=== PATIENT | female | born 1980 | race Caucasian/White ===

== ENCOUNTER 2017-10-21 16:22 | Emergency (ER) | payer MEDICAID ==
[~2017-10-21] VITALS: Ht 175.3 cm; Wt 101.6 kg
[~2017-10-21 16:22] MED LIST: ALBU6.7H INH; AMOX-422 PO; ARIP5TAB4 PO; ATOM10CA; AZIT250T PO; CIPR-230 PO; CLON-527 PO; CYCL-1 PO; FLUT16SP2 NS; MONT5TAB14 PO; NORCO10T PO; PHEN-873 PO; PROP40TA7 PO
[2017-10-21] MEDS ORDERED: AMOX-580 PO (17:07)
[2017-10-21] MEDS ORDERED: PROP40TA7 PO (17:07)
[2017-10-21 17:08] VITALS: BP 148/105
== END 2017-10-21 17:12 | disposition home or self-care (01) ==
LOC: ER 16:22
DX: J32.9 Chronic sinusitis, unspecified (principal); Z76.0 Encounter for issue of repeat prescription; I10 Essential (primary) hypertension; G89.29 Other chronic pain; F17.200 Nicotine dependence, unspecified, uncomplicated; F12.10 Cannabis abuse, uncomplicated; F15.10 Other stimulant abuse, uncomplicated; Z88.6 Allergy status to analgesic agent; Z90.49 Acquired absence of other specified parts of digestive tract; Z79.899 Other long term (current) drug therapy
CPT/HCPCS: 99283

== ENCOUNTER 2017-11-12 19:10 | Emergency (ER) | payer MEDICAID ==
[~2017-11-12] VITALS: Ht 175.3 cm; Wt 81.6 kg
[~2017-11-12 19:10] MED LIST changes: +AMOX-580 PO
[2017-11-12 19:24] VITALS: BP 136/84
[2017-11-13] MEDS ORDERED: AZIT500T5 PO (18:02)
[2017-11-13] MEDS ORDERED: HYDR-569 PO (18:02)
[2017-11-13] MEDS ORDERED: PRED20TA PO (18:02)
== END 2017-11-12 21:53 | disposition left against medical advice (07) ==
LOC: ER 19:10
DX: J02.9 Acute pharyngitis, unspecified (principal); Z53.21 Procedure and treatment not carried out due to patient leaving prior to being seen by health care provider

== ENCOUNTER 2017-11-13 14:40 | Emergency (ER) | payer MEDICAID ==
[~2017-11-13] VITALS: Ht 172.7 cm; Wt 85.4 kg
[2017-11-13] MEDS ORDERED: ketorolac tromethamine 15mg/ml inj. IM ONE (14:55)
[2017-11-13] MEDS ORDERED: acetaminophen 325mg tablet PO ONE (14:55)
[2017-11-13] MEDS ORDERED: dexamethasone sod phosphate 10mg/ml inj IV STA (15:08)
[2017-11-13] MEDS ORDERED: normal saline 1000ML IV soln IV ONE (15:10)
[2017-11-13] MEDS ORDERED: LIDOcaine Viscous 15ml cup MM PRN (15:10)
[2017-11-13] MEDS ORDERED: CefTRIAXone 2gm/NS 100ml IVPB 100 ML IV ONE (15:10)
[2017-11-13 16:23] LABS: BASOPHILS % (AUTO) 0 % (0-1); EOSINOPHILS % (AUTO) 0.2 % (0-6); HEMATOCRIT 44.1 % (35.0-45.0); HEMOGLOBIN 15.3 g/dl (12.0-16.0); LYMPHOCYTES # (AUTO) 0.9 X10'3 (1.1-4.8); LYMPHOCYTES % (AUTO) 5.7 % (21-51); MEAN CORPUSCULAR HEMOGLOBIN 32.1 PG (27.0-31.0); MEAN CORPUSCULAR HGB CONC 34.7 % (33.0-36.5); MEAN CORPUSCULAR VOLUME 92.5 FL (78-98); MEAN PLATELET VOLUME 9.6 FL (7.4-10.4); MONOCYTES # (AUTO) 1.2 X10'3 (0-0.9); MONOCYTES % (AUTO) 7.4 % (2-12); NEUTROPHILS # (AUTO) 14.3 X10'3 (1.8-7.7); NEUTROPHILS % (AUTO) 86.7 % (42-75); PLATELET COUNT 181 X10'3 (140-440); RED BLOOD COUNT 4.77 X10'6 (4.20-5.60); RED CELL DISTRIBUTION WIDTH 13.6 % (11.5-14.5); WHITE BLOOD COUNT 16.5 X10'3 (4.5-11.0)
[2017-11-13 16:39] LABS: ALANINE AMINOTRANSFERASE 30 U/L (12-78); ALBUMIN 3.9 G/DL (3.4-5.0); ALKALINE PHOSPHATASE 80 IU/L (46-116); ANION GAP 9 (8-16); ASPARTATE AMINO TRANSFERASE 20 U/L (10-37); BILIRUBIN,TOTAL 0.8 MG/DL (0.1-1.0); BLOOD UREA NITROGEN 10 MG/DL (7-18); BUN/CREATININE RATIO 14.5 (6.6-38.0); CALCIUM 9.2 MG/DL (8.5-10.1); CHLORIDE 102 MMOL/L (99-107); CREATININE 0.69 MG/DL (0.40-0.90); GLUCOSE 94 MG/DL (70-104); POTASSIUM 4.1 MMOL/L (3.5-5.1); SODIUM 139 MMOL/L (135-145); TOTAL CARBON DIOXIDE 27.6 MMOL/L (24-32); TOTAL PROTEIN 7.9 G/DL (6.4-8.2); eGFR > 90 ML/MIN
[2017-11-13] MEDS ORDERED: AZIT500T5 PO (18:02)
[2017-11-13] MEDS ORDERED: HYDR-569 PO (18:02)
[2017-11-13] MEDS ORDERED: PRED20TA PO (18:02)
[2017-11-13 18:27] VITALS: BP 124/71
== END 2017-11-13 18:29 | disposition home or self-care (01) ==
LOC: ER 14:40
DX: J02.0 Streptococcal pharyngitis (principal); I10 Essential (primary) hypertension; G89.29 Other chronic pain; F12.10 Cannabis abuse, uncomplicated; F15.10 Other stimulant abuse, uncomplicated; Z88.0 Allergy status to penicillin; Z90.49 Acquired absence of other specified parts of digestive tract; Z59.0 Homelessness; Z88.5 Allergy status to narcotic agent; Z79.899 Other long term (current) drug therapy
CPT/HCPCS: 36415; 80053; 83605; 84145; 85025; 87040; 93005; 96365; 96366; 96372; 96375; 99285; J0696; J1100; J1885; J7030

== ENCOUNTER 2019-02-14 20:38 | Emergency (ER) | payer MEDICAID ==
[~2019-02-14] VITALS: Ht 177.8 cm; Wt 100.0 kg
[~2019-02-14 20:38] MED LIST changes: -AMOX-580 PO; +AZIT500T5 PO; +HYDR-4383 PO; +PHEN-786 PO; -PHEN-873 PO
[2019-02-14 21:04] VITALS: BP 136/91
== END 2019-02-15 00:18 | disposition left against medical advice (07) ==
LOC: ER 20:39
DX: J00 Acute nasopharyngitis [common cold] (principal); R05 Cough; R09.89 Other specified symptoms and signs involving the circulatory and respiratory systems; Z53.21 Procedure and treatment not carried out due to patient leaving prior to being seen by health care provider

== ENCOUNTER 2019-10-24 16:07 | Emergency (ER) | payer MEDICAID ==
[~2019-10-24] VITALS: Ht 177.8 cm; Wt 97.0 kg
[~2019-10-24 16:07] MED LIST changes: -ALBU6.7H INH; +ALBU6.7H9 INH; +ARIP5TAB14 PO; -ARIP5TAB4 PO; -AZIT500T5 PO; +AZIT500T9 PO
[2019-10-24] MEDS ORDERED: PROP10TA10 PO (17:06)
[2019-10-24 17:14] VITALS: BP 149/104
== END 2019-10-24 17:17 | disposition home or self-care (01) ==
LOC: ER 16:07
DX: I10 Essential (primary) hypertension (principal); Z76.0 Encounter for issue of repeat prescription; G89.29 Other chronic pain; F41.9 Anxiety disorder, unspecified; F31.9 Bipolar disorder, unspecified; F12.90 Cannabis use, unspecified, uncomplicated; F15.90 Other stimulant use, unspecified, uncomplicated; Z59.0 Homelessness; Z56.0 Unemployment, unspecified; Z90.49 Acquired absence of other specified parts of digestive tract; Z98.890 Other specified postprocedural states; Z88.5 Allergy status to narcotic agent; Z79.899 Other long term (current) drug therapy; Z79.2 Long term (current) use of antibiotics
CPT/HCPCS: 99283

== ENCOUNTER 2020-04-22 14:35 | Emergency (ER) | payer MEDICAID ==
[~2020-04-22] VITALS: Ht 177.8 cm; Wt 98.4 kg
[2020-04-22 14:44] VITALS: BP 153/97
--- NOTE | 2020-04-22 15:41 | NUR ---
pt came in r/t absess in mouth was told by her dentist that he will not do any thing until she starts anitbiotics. she came in to see if she can get started on some. she also want to find out if she can get a refill of her Rx for her blood pressure medaction
--- NOTE | 2020-04-22 15:47 | NUR ---
Breaking primary RN, pt awaiting MD
[2020-04-22] MEDS ORDERED: PROP10TA10 PO (16:36)
[2020-04-22] MEDS ORDERED: PENI250T2 PO (16:36)
== END 2020-04-22 16:46 | disposition home or self-care (01) ==
LOC: ER 14:36
DX: K04.7 Periapical abscess without sinus (principal); K05.319 Chronic periodontitis, localized, unspecified severity; I10 Essential (primary) hypertension; G89.29 Other chronic pain; F41.9 Anxiety disorder, unspecified; F31.9 Bipolar disorder, unspecified; F12.90 Cannabis use, unspecified, uncomplicated; F15.90 Other stimulant use, unspecified, uncomplicated; Z90.49 Acquired absence of other specified parts of digestive tract; Z90.89 Acquired absence of other organs; Z59.0 Homelessness; Z56.0 Unemployment, unspecified; Z88.5 Allergy status to narcotic agent; Z79.2 Long term (current) use of antibiotics; Z79.899 Other long term (current) drug therapy
CPT/HCPCS: 99283

== ENCOUNTER 2020-08-03 17:43 | Emergency (ER) | payer MEDICAID ==
[~2020-08-03] VITALS: Ht 175.3 cm; Wt 104.5 kg
[2020-08-03] MEDS ORDERED: PENI500T2 PO (19:21)
[2020-08-03] MEDS ORDERED: PROP10TA10 PO (19:21)
[2020-08-03] MEDS ORDERED: ketorolac trometh. 30mg/ml inj. IM ONE (19:25)
[2020-08-03] MEDS ORDERED: ketorolac tromethamine 15mg/ml inj. IM ONE (19:25)
[2020-08-03 19:57] VITALS: BP 204/127
== END 2020-08-03 19:52 | disposition home or self-care (01) ==
LOC: ER 17:43
DX: K08.89 Other specified disorders of teeth and supporting structures (principal); I10 Essential (primary) hypertension; G89.29 Other chronic pain; F41.9 Anxiety disorder, unspecified; F31.9 Bipolar disorder, unspecified; F12.90 Cannabis use, unspecified, uncomplicated; F15.90 Other stimulant use, unspecified, uncomplicated; Z76.0 Encounter for issue of repeat prescription; Z90.49 Acquired absence of other specified parts of digestive tract; Z90.89 Acquired absence of other organs; Z98.890 Other specified postprocedural states; Z56.0 Unemployment, unspecified; Z59.0 Homelessness; Z88.5 Allergy status to narcotic agent; Z79.2 Long term (current) use of antibiotics; Z79.899 Other long term (current) drug therapy
CPT/HCPCS: 96372; 99283; J1885

== ENCOUNTER 2020-08-12 22:20 | Emergency (ER) | payer MEDICAID ==
[~2020-08-12] VITALS: Ht 177.8 cm; Wt 104.5 kg
[~2020-08-12 22:20] MED LIST changes: +PROP10TA10 PO
[2020-08-12 23:06] LABS: URINE HCG NEGATIVE (NEG)
[2020-08-12 23:16] LABS: CLARITY,URINE CLEAR (Clear); COLOR,URINE YELLOW (Yellow); GLUCOSE, URINE NEGATIVE (Neg); KETONES,URINE NEGATIVE (Neg); LEUKOCYTE ESTERASE ,URINE NEGATIVE (Neg); NITRITES, URINE NEGATIVE (Neg); OCCULT BLOOD,URINE NEGATIVE (Neg); PROTEIN,URINE NEGATIVE (Neg)
[2020-08-12 23:27] LABS: UA COLLECTION TYPE NON-SPECIFIED
--- NOTE | 2020-08-12 23:30 | NUR ---
PT TO BE TREATED EMPERICALLY FOR STD. VAGINAL EXAM AND SWAB COLLECTED BY DAVE AGUILERA, CHAPRONED BY MYSELF. PT REPORTS SHE IS CONSTIPATED AND THIS COULD ALSO BE SOME CAUSE OF DISCOMFORT.
[2020-08-12 23:33] VITALS: BP 175/124
[2020-08-12] MEDS ORDERED: azithromycin 250mg tablet PO ONE (23:40)
[2020-08-12] MEDS ORDERED: CefTRIAXone 250MG IM Kit w/LIDOcaine IM ONE (23:40)
[2020-08-12] MEDS ORDERED: metroNIDAZOLE 500mg tablet PO ONE (23:40)
== END 2020-08-13 00:04 | disposition home or self-care (01) ==
LOC: ER 22:21
DX: B99.8 Other infectious disease (principal); N94.19 Other specified dyspareunia; I10 Essential (primary) hypertension; G89.29 Other chronic pain; F15.90 Other stimulant use, unspecified, uncomplicated; F12.90 Cannabis use, unspecified, uncomplicated; Z90.49 Acquired absence of other specified parts of digestive tract; Z98.890 Other specified postprocedural states; Z56.0 Unemployment, unspecified; Z59.0 Homelessness; Z88.6 Allergy status to analgesic agent; Z79.2 Long term (current) use of antibiotics; Z79.899 Other long term (current) drug therapy
CPT/HCPCS: 36415; 81003; 81025; 87210; 87491; 87591; 96372; 99284; J0696; Q0112; 99283; J3490

== ENCOUNTER 2020-08-19 19:35 | Emergency (ER) | payer MEDICAID ==
[~2020-08-19] VITALS: Ht 177.8 cm; Wt 103.0 kg
[~2020-08-19 19:35] MED LIST changes: -PROP10TA10 PO
[2020-08-19 19:42] VITALS: BP 183/126
[2020-08-19] MEDS ORDERED: PROP10TA10 PO (20:05)
== END 2020-08-19 20:16 | disposition home or self-care (01) ==
LOC: ER 19:36
DX: I10 Essential (primary) hypertension (principal); G89.29 Other chronic pain; F31.9 Bipolar disorder, unspecified; Z59.0 Homelessness; Z56.0 Unemployment, unspecified; F12.10 Cannabis abuse, uncomplicated; F15.10 Other stimulant abuse, uncomplicated; Z98.890 Other specified postprocedural states; Z88.5 Allergy status to narcotic agent; Z79.899 Other long term (current) drug therapy; Z76.0 Encounter for issue of repeat prescription
CPT/HCPCS: 99281

== ENCOUNTER 2021-02-26 08:06 | Emergency (ER) | payer MEDICAID ==
[~2021-02-26] VITALS: Ht 177.8 cm; Wt 102.3 kg
[~2021-02-26 08:06] MED LIST changes: +CIPR-202 PO; -CIPR-230 PO
[2021-02-26] MEDS ORDERED: normal saline 1000ML IV soln IVB ONE ×2 (08:40→08:55)
[2021-02-26] MEDS ORDERED: ketorolac tromethamine 15mg/ml inj. IV ONE (08:55)
[2021-02-26 09:17] LABS: CLARITY,URINE CLOUDY (Clear); COLOR,URINE YELLOW (Yellow); GLUCOSE, URINE NEGATIVE (Neg); KETONES,URINE NEGATIVE (Neg); LEUKOCYTE ESTERASE ,URINE LARGE (Neg); NITRITES, URINE POSITIVE (Neg); OCCULT BLOOD,URINE LARGE (Neg); PH,URINE 6.5 (4.8-8.0); PROTEIN,URINE 30 mg/dl (Neg); UA COLLECTION TYPE CLN CATCH MIDSTREAM
[2021-02-26 09:17] LABS: BASOPHILS # (AUTO) 0.1 X10'3 (0-0.2); BASOPHILS % (AUTO) 0.7 % (0-1); EOSINOPHILS # (AUTO) 0.1 X10'3 (0-0.9); EOSINOPHILS % (AUTO) 0.9 % (0-6); HEMOGLOBIN 13.1 g/dl (12.0-16.0); LYMPHOCYTES # (AUTO) 0.9 X10'3 (1.1-4.8); MEAN CORPUSCULAR HEMOGLOBIN 31.4 PG (27.0-31.0); MEAN CORPUSCULAR HGB CONC 34.5 g/dL (33.0-36.5); MEAN CORPUSCULAR VOLUME 91.1 FL (78-98); MEAN PLATELET VOLUME 9.9 FL (7.4-10.4); MONOCYTES # (AUTO) 0.9 X10'3 (0-0.9); MONOCYTES % (AUTO) 7.4 % (2-12); NEUTROPHILS # (AUTO) 10.6 X10'3 (1.8-7.7); PLATELET COUNT 175 X10'3 (140-440); RED BLOOD COUNT 4.17 X10'6 (4.20-5.60); WHITE BLOOD COUNT 12.6 X10'3 (4.5-11.0)
[2021-02-26 09:20] LABS: URINE HCG NEGATIVE (NEG)
[2021-02-26 09:22] LABS: WBC,URINE TNTC /HPF (0-4)
[2021-02-26 09:23] LABS: BACTERIA,URINE 2+ /HPF (Neg)
[2021-02-26 09:24] LABS: MUCUS STRANDS FEW /LPF (Neg); SQUAMOUS EPITHELIAL CELL,UR FEW /LPF (FEW)
[2021-02-26 09:33] LABS: ALBUMIN 3.4 G/DL (3.4-5.0); ALBUMIN/GLOBULIN RATIO 1.1 (1.1-1.5); ALKALINE PHOSPHATASE 65 IU/L (46-116); ANION GAP 8 (8-16); ASPARTATE AMINO TRANSFERASE 11 U/L (10-37); BILIRUBIN,TOTAL 0.6 MG/DL (0.1-1.0); BLOOD UREA NITROGEN 10 MG/DL (7-18); BUN/CREATININE RATIO 13.9 (6.6-38.0); CALCIUM 8.2 MG/DL (8.5-10.1); CHLORIDE 104 MMOL/L (99-107); CREATININE 0.72 MG/DL (0.40-0.90); ETHANOL < 0.010 GM/DL (0.0-0.010); GLUCOSE 109 MG/DL (70-104); LIPASE 209 U/L (73-393); MAGNESIUM 1.6 MG/DL (1.5-2.4); POTASSIUM 4.5 MMOL/L (3.5-5.1); SODIUM 138 MMOL/L (135-145); TOTAL CARBON DIOXIDE 25.6 MMOL/L (24-32); TOTAL PROTEIN 6.6 G/DL (6.4-8.2); eGFR 89 ML/MIN
[2021-02-26 09:35] LABS: ALANINE AMINOTRANSFERASE 14 U/L (12-78)
--- NOTE | 2021-02-26 09:40 | NUR ---
pt states she has been falling asleep here. states she didn't sleep last night and she is very tired. pt in no obvious distress.
[2021-02-26] MEDS ORDERED: normal saline 1000ML IV soln IV ONE (11:20)
[2021-02-26] MEDS ORDERED: CefTRIAXone 2gm/D5W 50ml BAG 50 ML IV ONE (11:20)
[2021-02-26] MEDS ORDERED: phenazopyridine 100mg tablet PO ONE (11:55)
[2021-02-26] MEDS ORDERED: CEPH250T PO (11:56)
[2021-02-26 12:24] VITALS: BP 165/116
== END 2021-02-26 12:26 | disposition home or self-care (01) ==
LOC: ER 08:07
DX: N39.0 Urinary tract infection, site not specified (principal); N12 Tubulo-interstitial nephritis, not specified as acute or chronic; R78.81 Bacteremia; R10.84 Generalized abdominal pain; I10 Essential (primary) hypertension; G89.29 Other chronic pain; F41.9 Anxiety disorder, unspecified; F31.9 Bipolar disorder, unspecified; F12.90 Cannabis use, unspecified, uncomplicated; F15.90 Other stimulant use, unspecified, uncomplicated; Z90.49 Acquired absence of other specified parts of digestive tract; Z90.89 Acquired absence of other organs; Z98.890 Other specified postprocedural states; Z56.0 Unemployment, unspecified; Z59.0 Homelessness; Z88.5 Allergy status to narcotic agent; Z79.2 Long term (current) use of antibiotics; Z79.899 Other long term (current) drug therapy
CPT/HCPCS: 36415; 74176; 80053; 80320; 81001; 81025; 83605; 83690; 83735; 84145; 85025; 87040; 87077; 87088; 87186; 96361; 96365; 99284; J0696; J7030

== ENCOUNTER 2021-03-12 19:44 | Emergency (ER) | payer MEDICAID ==
[~2021-03-12] VITALS: Ht 177.8 cm; Wt 100.3 kg
[~2021-03-12 19:44] MED LIST changes: +CEPH250T PO
[2021-03-12 19:59] VITALS: BP 164/100
[2021-03-12 22:10] LABS: URINE HCG NEGATIVE (NEG)
[2021-03-12 22:11] LABS: CLARITY,URINE CLEAR (Clear); COLOR,URINE YELLOW (Yellow); GLUCOSE, URINE NEGATIVE (Neg); KETONES,URINE NEGATIVE (Neg); LEUKOCYTE ESTERASE ,URINE NEGATIVE (Neg); NITRITES, URINE NEGATIVE (Neg); OCCULT BLOOD,URINE NEGATIVE (Neg); PH,URINE 5.5 (4.8-8.0); PROTEIN,URINE NEGATIVE (Neg); UROBILINOGEN,URINE 0.2 E.U/dL (0.2-1.0)
[2021-03-12 22:42] LABS: UA COLLECTION TYPE CLN CATCH MIDSTREAM
== END 2021-03-12 23:51 | disposition left against medical advice (07) ==
LOC: ER 19:46
DX: R10.9 Unspecified abdominal pain (principal); Z53.21 Procedure and treatment not carried out due to patient leaving prior to being seen by health care provider
CPT/HCPCS: 81003; 81025

== ENCOUNTER 2021-08-05 20:34 | Emergency (ER) | payer MEDICAID ==
[~2021-08-05] VITALS: Ht 177.8 cm; Wt 100.0 kg
[2021-08-05 20:48] VITALS: BP 154/116
[2021-08-05] MEDS ORDERED: AMOX-117 PO (21:47)
[2021-08-05] MEDS ORDERED: ALBU8HFA PO (21:47)
== END 2021-08-05 22:46 | disposition home or self-care (01) ==
LOC: ER 20:35
DX: J20.9 Acute bronchitis, unspecified (principal); Z20.822 Contact with and (suspected) exposure to COVID-19; R05.9 Cough, unspecified; R09.89 Other specified symptoms and signs involving the circulatory and respiratory systems; R50.9 Fever, unspecified; I10 Essential (primary) hypertension; G89.29 Other chronic pain; F41.9 Anxiety disorder, unspecified; F31.9 Bipolar disorder, unspecified; F12.90 Cannabis use, unspecified, uncomplicated; F15.90 Other stimulant use, unspecified, uncomplicated; Z90.49 Acquired absence of other specified parts of digestive tract; Z90.89 Acquired absence of other organs; Z98.890 Other specified postprocedural states; Z56.0 Unemployment, unspecified; Z59.00 Homelessness unspecified; Z88.5 Allergy status to narcotic agent; Z79.2 Long term (current) use of antibiotics; Z79.899 Other long term (current) drug therapy
CPT/HCPCS: 87635; 99283; C9803